=== PATIENT | male | born 1960 | race Caucasian/White ===

== ENCOUNTER 2018-07-29 00:49 | Emergency (ER) | payer BC ==
[2018-07-29] MEDS ORDERED: TAMSULOSIN HCL 0.4 MG CAP PO ONE ×2 (01:50→01:55)
--- NOTE | 2018-07-29 01:50 | EDPHY ---
H & P Stated Complaint: unable to urinate for the past 5 hours Time Seen by Provider: 07/29/18 01:37 HPI/ROS: HPI The patient presents with difficulty urinating over the last several hours which has gotten progressively worse and now has caused him to have lower abdominal pain and distension. He does have a history of BPH, with an elevated PSA per his report is followed by Dr. Berg does not take any medication for this. He states that he does have 1 episode of nocturia each night and before he goes to bed spends about 45 min urinating. He does not have any blood in his urine and does not have any dysuria. REVIEW OF SYSTEMS 10 systems were reviewed and negative with the exception of the elements mentioned in the history of present illness. PMHx: BPH Soc Hx: Here with his PHYSICAL General Appearance: Alert, no distress Eyes: Pupils equal and round no pallor or injection ENT, Mouth: Mucous membranes moist Respiratory: Breathing comfortably Gastrointestinal: Abdomen is soft and non-tender, no masses, bowel sounds normal Neurological: A&O, moves all extremities Skin: Warm and dry, no rashes Psychiatric: Patient is oriented X 3, there is no agitation Source: Patient Exam Limitations: No limitations - Personal History Current Tetanus/Diphtheria Vaccine: Yes Current Tetanus Diphtheria and Acellular Pertussis (TDAP): Yes - Medical/Surgical History Hx Asthma: No Hx Chronic Respiratory Disease: No Hx Diabetes: No Hx Cardiac Disease: No Hx Renal Disease: No Hx Cirrhosis: No Hx Alcoholism: No Hx HIV/AIDS: No Hx Splenectomy or Spleen Trauma: No Other PMH: tonsillitis - Social History Smoking Status: Former smoker Constitutional: Initial Vital Signs Temperature (C) 36.7 C 07/29/18 00:52 Heart Rate 86 07/29/18 00:52 Respiratory Rate 16 07/29/18 00:52 Blood Pressure 159/92 H 07/29/18 00:52 O2 Sat (%) 98 07/29/18 00:52 O2 Delivery Mode Room Air Allergies/Adverse Reactions: No Known Allergies Allergy (Verified 07/29/18 00:51) Home Medications: Medication Instructions Recorded Tamsulosin HCl [Flomax 0.4 MG (*)] 0.4 mg PO DAILY #10 cap 07/29/18 Medical Decision Making Differential Diagnosis: 58-year-old man with BPH presents with urinary retention symptoms which became worse tonight. Postvoid residual is 1100 mL. Not taking any new medication. Our nurse placed a Whaley without difficulty which drained clear urine which was sent for testing which was positive for 1+ blood only. I do not think this signifies urinary tract infection. We discussed Whaley care. I will start him on Flomax for now. I will have him follow up with his urologist in the next few days. He is happy with this plan. Differential diagnosis includes BPH, constipation, medication side effect. - Data Points Laboratory Results: 07/29/18 01:40 Urine Color PALE YELLOW Urine Appearance CLEAR Urine pH 6.0 (5.0-7.5) Ur Specific Burt 1.008 (1.002-1.030) Urine Protein NEGATIVE (NEGATIVE) Urine Ketones NEGATIVE (NEGATIVE) Urine Blood 1+ H (NEGATIVE) Urine Nitrate NEGATIVE (NEGATIVE) Urine Bilirubin NEGATIVE (NEGATIVE) Urine Urobilinogen NEGATIVE EU EU (0.2-1.0) Ur Leukocyte Esterase NEGATIVE (NEGATIVE) Urine RBC 1-3 /hpf /hpf (0-3) Urine WBC 0-1 /hpf /hpf (0-3) Ur Epithelial Cells NONE SEEN /lpf /lpf (NONE-1+) Urine Glucose NEGATIVE (NEGATIVE) Medications Given: Discontinued Medications Tamsulosin HCl (Flomax) 0.4 mg PO EDNOW ONE Stop: 07/29/18 01:51 Last Admin: 07/29/18 01:57 Dose: 0.4 mg Departure - Departure Disposition: Home, Routine, Self-Care Clinical Impression: Acute urinary retention Condition: Good Instructions: Tamsulosin (By mouth), Urinary Retention in Men (ED), Whaley Catheter Placement and Care (ED) Referrals: ANDREA MARCH [Primary Care Provider] - As per Instructions Lorenzo Berg MD [Medical Doctor] - As per Instructions Prescriptions: Tamsulosin HCl [Flomax 0.4 MG (*)] 0.4 mg PO DAILY #10 cap
[2018-07-29 02:24] VITALS: BP 109/61
== END 2018-07-29 02:22 | disposition home or self-care (01) ==
PROC: 0T9B70Z Drainage of Bladder with Drainage Device, Via Natural or Artificial Opening (ICD-10-PCS; principal; 2018-07-29)
DX: R33.9 Retention of urine, unspecified (principal); N40.1 Benign prostatic hyperplasia with lower urinary tract symptoms